=== PATIENT | male | born 1950 | race Caucasian/White ===

== ENCOUNTER 2018-06-24 13:21 | Observation (INO) | payer OTHER, MEDICARE ==
[2018-06-24] MEDS ORDERED: FAMOTIDINE 20 MG/50 ML IVPB 20 MG/50 ML MG IVPB ONE ×2 (13:58→15:06)
[2018-06-24] MEDS ORDERED: SODIUM CHLORIDE 0.9% 1000 ML INFUS.BAG IV ONE (13:58)
--- NOTE | 2018-06-24 14:19 | PDOC ---
History of Present Illness - General Chief Complaint: Syncope/Near Syncope Stated Complaint: SEND BY PCP Time Seen by Provider: 06/24/18 13:46 History Source: Patient Exam Limitations: No Limitations - History of Present Illness Initial Comments: 06/24/18 14:14 The patient is a 67M with a PMH of HIV (no viral load detected), HTN, HLD who presents to the ER with complaints of syncope. The patient states that he had eaten "something weird" yesterday, and developed profuse watery diarrhea, nausea , and vomiting. He then states that he felt the urge to vomit, and walked over to the sink then felt a "acosta of blood" towards his head. He then states that he woke up on the floor with L posterior rib pain and pain on the top of his head. He had vomit all over him. He went to sleep and saw his PCP this morning, who sent him here. He denies any CP, SOB, numbness, tingling, weakness, lightheadedness, palpitation before, during, or after this event. Past History - Past Medical History Allergies/Adverse Reactions: Allergies Allergy/AdvReac Type Severity Reaction Status Date / Time Penicillins Allergy Verified 06/24/18 13:32 Home Medications: Ambulatory Orders Abacavir/Dolutegravir/Lamivudi [Triumeq Tablet] 1 each PO DAILY 06/24/18 Fenofibric Acid [Trilipix -] 45 mg PO DAILY 06/24/18 Finasteride [Proscar] 5 mg PO DAILY 06/24/18 Lisinopril [Zestril] 10 mg PO DAILY 06/24/18 Tamsulosin HCl [Flomax] 0.4 mg PO DAILY 06/24/18 Venlafaxine HCl ER [Effexor Xr -] 37.5 mg PO DAILY 06/24/18 COPD: No Disorders: Yes (enlarged prostate) HTN: Yes Psychiatric Problems: Yes - Suicide/Smoking/Psychosocial Hx Smoking History: Never smoked Review of Systems - Review of Systems Able to Perform ROS?: Yes Comments:: 06/24/18 14:18 GENERAL/CONSTITUTIONAL: No fever or chills. No weakness. HEAD, EYES, EARS, NOSE AND THROAT: No change in vision. No ear pain or discharge. No sore throat. CARDIOVASCULAR: No chest pain, palpitations, or lightheadedness. RESPIRATORY: No cough, wheezing, shortness of breath, or hemoptysis. GASTROINTESTINAL: Positive for resolved nausea and vomiting, continued but resolving diarrhea. No abdominal pain. GENITOURINARY: No dysuria, frequency, hematuria, or change in urination. MUSCULOSKELETAL: No joint or muscle swelling or pain. No neck or back pain. SKIN: No rash or lesions. NEUROLOGIC: + for syncope. No headache, numbness, tingling, focal weakness, or change in strength/sensation. Is the patient limited Macedonian proficient: No *Physical Exam - Vital Signs Last Vital Signs Temp Pulse Resp BP Pulse Ox 98.5 F 112 H 18 140/84 96 06/24/18 13:39 06/24/18 13:39 06/24/18 13:39 06/24/18 13:39 06/24/18 13:39 - Physical Exam Comments: 06/24/18 14:18 GENERAL: Well developed, well nourished. Awake and alert. No acute distress. HEENT: 1cm hematoma on the superior scalp with abrasion. Hearing grossly normal. Moist mucous membranes. PERRLA, EOMI. No conjunctival pallor. Sclera are non-icteric. Oropharynx is clear. NECK: Supple. Full ROM. No JVD. CARDIOVASCULAR: Regular rate and rhythm. No murmurs, rubs, or gallops. PULMONARY: No evidence of respiratory distress. Lungs clear to auscultation bilaterally. No wheezing, rales or rhonchi. ABDOMINAL: Soft. Non-tender. Non-distended. No rebound or guarding. GENITOURINARY: No CVA tenderness bilaterally. MUSCULOSKELETAL: 6cm abrasion with TTP over posterior inferior L ribs. Normal range of motion at all joints. EXTREMITIES: No cyanosis. No clubbing. No edema. No calf tenderness or swelling. SKIN: Warm and dry. Normal capillary refill. No rashes. No jaundice. NEUROLOGICAL: Alert, awake, appropriate. Cranial nerves 2-12 grossly intact. Normal speech. Gait is normal without ataxia. PSYCHIATRIC: Cooperative. Good eye contact. Appropriate mood and affect. Moderate Sedation - Procedure Monitoring Vital Signs: Procedure Monitoring Vital Signs Temperature 98.5 F 06/24/18 13:39 Pulse Rate 112 H 06/24/18 13:39 Respiratory Rate 18 06/24/18 13:39 Blood Pressure 140/84 02/28/19 13:39 O2 Sat by Pulse Oximetry (%) 96 06/24/18 13:39 Heart Score/ECG Review #1 ECG reviewed & interpreted by me at: 14:19 General ECG Interpretation: Sinus Rhythm, Normal Rate, Normal Intervals, No acute ischemic changes Compared to previous ECG there are: No significant change 06/24/18 14:19 Sinus tach vent rate 110 TX 162 QRS 92 QTc 455 No STD or ERMELINDA No signs of acute ischemia ED Treatment Course - LABORATORY CBC & Chemistry Diagram: 06/24/18 15:00 06/24/18 15:00 - RADIOLOGY Radiology Studies Ordered: Category Date Time Status HEAD CT WITHOUT CONTRAST [CT] Stat CT Scan 06/24/18 13:59 Ordered CHEST PA & LAT [RAD] Stat Radiology 06/24/18 13:58 Ordered RIBS-LEFT SIDE [RAD] Stat Radiology 06/24/18 13:58 Ordered Medical Decision Making - Medical Decision Making 06/24/18 14:19 The patient is a 67M with a PMH of HIV, HTN, HLD who presents to the ER after having a syncopal episode. The patient denies any concerning symptoms during his syncopal episode. Will replete volume and image the patient's ribs and head. Pending labs and imaging. Pt noted to be ambulating without issues and is well appearing otherwise. 06/24/18 16:56 CBC, CMP WNL. CTH negative. Will admit for syncope. 06/24/18 17:[address] Leonardo for admission. *DC/Admit/Observation/Transfer Diagnosis at time of Disposition: Syncope Qualifiers: Syncope type: unspecified Qualified Code(s): R55 - Syncope and collapse - Discharge Dispostion Condition at time of disposition: Guarded Decision to Admit order: Yes - Referrals Referrals: Severo Elias [Primary Care Provider] - - Patient Instructions - Post Discharge Activity
[2018-06-24 15:14] LABS: BASO % 0.4 % (0-2.0); EOS % 1.2 % (0-4.5); HEMATOCRIT 50.1 % (35.4-49); HEMOGLOBIN 17.3 GM/dL (11.7-16.9); LYMPH % 13.2 % (8-40); MCH 30.7 pg (25.7-33.7); MCHC 34.5 g/dl (32.0-35.9); MEAN PLT VOLUME 8.3 fl (7.5-11.1); MONO % 7.7 % (3.8-10.2); NEUT % 77.5 % (42.8-82.8); PLATELET COUNT 165 K/MM3 (134-434); RBC 5.62 M/mm3 (4.00-5.60); RDW 15.3 % (11.9-15.9); WHITE BLOOD COUNT 8.4 K/mm3 (4.0-10.0)
[2018-06-24 15:21] LABS: INR 1.06 (0.83-1.09); PROTHROMBIN TIME (PATIENT) 12.5 SEC (9.7-13.0)
[2018-06-24 15:54] LABS: BLOOD UREA NITROGEN 29 mg/dL (7-18); GLUCOSE,RANDOM 109 mg/dL (74-106)
[2018-06-24 15:55] LABS: ALBUMIN 4.2 g/dl (3.4-5.0); ALK PHOS 48 U/L (45-117); ANION GAP 8 MMOL/L (8-16); BILIRUBIN,TOTAL 1.9 mg/dL (0.2-1); CALCIUM 9.4 mg/dL (8.5-10.1); CHLORIDE 106 mmol/L (98-107); CO2 24 mmol/L (21-32); CREATININE 1.3 mg/dL (0.55-1.3); MAGNESIUM 1.8 mg/dL (1.8-2.4); POTASSIUM 4.7 mmol/L (3.5-5.1); SGOT/AST 59 U/L (15-37); SGPT/ALT 53 U/L (13-61); SODIUM 137 mmol/L (136-145); TOT PROT 9.3 g/dl (6.4-8.2)
--- NOTE | 2018-06-24 16:51 | EKG ---
Test Reason : Blood Pressure : / mmHG Vent. Rate : 108 BPM Atrial Rate : 108 BPM P-R Int : 162 ms QRS Dur : 092 ms QT Int : 340 ms P-R-T Axes : 021 020 037 degrees QTc Int : 455 ms SINUS TACHYCARDIA OTHERWISE NORMAL ECG WHEN COMPARED WITH ECG OF 09-DEC-2001 12:18, QT HAS LENGTHENED Confirmed by NEWTON WRIGHT MD ([id number]) on 06/24/2018 4:51:24 PM Referred By: Confirmed By:NEWTON WRIGHT MD
--- NOTE | 2018-06-24 17:27 | PDOC ---
Attending Attestation - Resident Resident Name: BrandonadrianoSherwin - ED Attending Attestation I have performed the following: I have examined & evaluated the patient, The case was reviewed & discussed with the resident, I agree w/resident's findings & plan - [facility] HPI: 06/24/18 17:25 HPI 67 Y M, PMH of HIV, HTN, HLD, and enlarged prostate, presenting to the ED s/p syncopal episode for 2 days. Patient reports diarrhea, nausea and vomiting secondary to eating something unusual yesterday. When trying to vomit, he notes passing out, LOC, and woke up on the floor with superior head and L posterior rib pain following the episode. Patient saw his PCP this morning, who advised him to come to the ED. Denies fever, chills, chest pain, SOB, palpitation, dizziness, paresthesia, weakness, lightheadedness, abdominal pain, bladder problems, leg swelling, No sick contacts or travel. No new changes in medications. Allergies: Penicillins Past Medical History: HIV, HTN, HLD, and enlarged prostate Social history: Lives with family. No smoking. No alcohol. No illicit drugs. Surgical history: None reported PMD: Dr. Severo Elias - Physicial Exam PE: 06/24/18 17:26 agree with resident PE - NAD, well appearing. hematoma on the superior scalp with abrasion. left scapular abrasion. left lateral chest wall tenderness, small abrasion, no crepitus. lungs clear, abdomen soft NTND. RRR. no edema. ADAMS x4 06/24/18 18:53 06/24/18 18:55 06/24/18 18:56 - Medical Decision Making 06/24/18 17:26 See HPI for details Vital signs reviewed, wnl. Prior notes reviewed, including admissions, discharges and consultations. laboratory results and imaging reviewed, basic labs and lytes wnl, CXR_no acute pathology Cardiac panel_neg trop EKG sinus tachycardia at 108 bpm, no interval abnormalities, narrow QRS, ST and T wave segments and morphology normal. Nonspecific T wave abnormalities CT head neg for bleed/injury. microvascular changes noted. CXR clear, no rib fx or ptx ED course: no acute events. -admit for syncope workup, tele monitor. 06/24/18 18:53 02/28/19 18:55 Heart Score/ECG Review #1 ECG reviewed & interpreted by me at: 13:40 General ECG Interpretation: Sinus Rhythm 06/24/18 17:27 EKG sinus tachycardia at 108 bpm, no interval abnormalities, narrow QRS, ST and T wave segments and morphology normal. Nonspecific T wave abnormalities
--- NOTE | 2018-06-24 17:29 | HP ---
CHIEF COMPLAINT: PCP:Guillermo HISTORY OF PRESENT ILLNESS: 67yo M with PMH HIV on HARRT, HTN, BPH, and dyslipidemia presented to the ER after syncopal episode. States he was in normal state of health. He prepared himself from frozen packages of fried shrimp and pigs in a blanket around 10pm. Started feeling queezy around midnight and had urge to vomit. was walking to the kitchen sink to vomit where he passed out. states he is unsure how long he lost consciousness from but woke up covered in vomit and struck his head on the kitchen floor. states he had approximately 10 episodes of loose BM since then. has since improved since arrival. had no previous episodes in the past. did not take his medications today. no recent changes to medication. no recent abx use. denies CP, SOB, fever, chills. had echo and NMST in 2016 which he reports as normal (states its performed part of routine screening) ER course was notable for: (1) (2) (3) Recent Travel:unknown PAST MEDICAL HISTORY:HIV, HTN, BPH, dyslipidemia, Spontaneous PTX s/p VATS x2 PAST SURGICAL HISTORY:VATS x2 1970, L shoulder repair 2016 Social History: Smoking:quit 2011 Alcohol:1 glass of wine/week Drugs: denies Family History:mother lung ca, maternal aunt NHL, father cardiac disease in 60's Allergies Penicillins Allergy (Verified 06/24/18 13:32) HOME MEDICATIONS: Home Medications Medication Instructions Recorded Abacavir/Dolutegravir/Lamivudi 1 each PO DAILY 06/24/18 [Triumeq Tablet] Fenofibric Acid [Trilipix -] 45 mg PO DAILY 06/24/18 Finasteride [Proscar] 5 mg PO DAILY 06/24/18 Lisinopril [Zestril] 10 mg PO DAILY 06/24/18 Tamsulosin HCl [Flomax] 0.4 mg PO DAILY 06/24/18 Venlafaxine HCl ER [Effexor Xr -] 37.5 mg PO DAILY 06/24/18 REVIEW OF SYSTEMS CONSTITUTIONAL: Absent: fever, chills, diaphoresis, generalized weakness, malaise, loss of appetite, weight change HEENT: Absent: rhinorrhea, nasal congestion, throat pain, throat swelling, difficulty swallowing, mouth swelling, ear pain, eye pain, visual changes CARDIOVASCULAR: Absent: chest pain, syncope, palpitations, irregular heart rate, lightheadedness , peripheral edema RESPIRATORY: Absent: cough, shortness of breath, dyspnea with exertion, orthopnea, wheezing, stridor, hemoptysis GASTROINTESTINAL:abdominal distension, nausea, vomiting, diarrhea Absent: abdominal pain, , constipation, melena, hematochezia GENITOURINARY: Absent: dysuria, frequency, urgency, hesitancy, hematuria, flank pain, genital pain MUSCULOSKELETAL: Absent: myalgia, arthralgia, joint swelling, back pain, neck pain SKIN: Absent: rash, itching, pallor HEMATOLOGIC/IMMUNOLOGIC: Absent: easy bleeding, easy bruising, lymphadenopathy, frequent infections ENDOCRINE: Absent: unexplained weight gain, unexplained weight loss, heat intolerance, cold intolerance NEUROLOGIC: Absent: headache, focal weakness or paresthesias, dizziness, unsteady gait, seizure, mental status changes, bladder or bowel incontinence PSYCHIATRIC: Absent: anxiety, depression, suicidal or homicidal ideation, hallucinations. PHYSICAL EXAMINATION Vital Signs - 24 hr 06/24/18 13:39 Temperature 98.5 F Pulse Rate 112 H Respiratory 18 Rate Blood Pressure 140/84 O2 Sat by Pulse 96 Oximetry (%) GENERAL: Awake, alert, and fully oriented, in no acute distress. skin is flushed HEAD: abrasion to top of head with surrounding swelling, +tender. EYES: Pupils equal, round and reactive to light, extraocular movements intact, sclera anicteric, conjunctiva clear. No lid lag. EARS, NOSE, THROAT: Ears normal, nares patent, oropharynx clear without exudates. Dry mucous membranes. NECK: Normal range of motion, supple without lymphadenopathy, JVD, or masses. LUNGS: Breath sounds equal, clear to auscultation bilaterally. No wheezes, and no crackles. No accessory muscle use. HEART: Regular rate and rhythm, normal S1 and S2 without murmur, rub or gallop. ABDOMEN: Soft, nontender, + distended, normoactive bowel sounds, no guarding, no rebound, no masses. No hepatomegaly or splenomegaly. MUSCULOSKELETAL: Normal range of motion at all joints. No bony deformities or tenderness. No CVA tenderness. UPPER EXTREMITIES: 2+ pulses, warm, well-perfused. No cyanosis. No clubbing. No peripheral edema. LOWER EXTREMITIES: 2+ pulses, warm, well-perfused. No calf tenderness. No peripheral edema. NEUROLOGICAL: Cranial nerves II-XII intact. Normal speech. Normal gait. PSYCHIATRIC: Cooperative. Good eye contact. Appropriate mood and affect. SKIN: Warm, dry, normal turgor, abrasion inferior to L scapula no active bleeding. normal capillary refill. Laboratory Results - last 24 hr 06/24/18 06/24/18 06/24/18 15:00 15:00 15:00 WBC 8.4 RBC 5.62 H Hgb 17.3 H Hct 50.1 H MCV 89.0 MCH 30.7 MCHC 34.5 RDW 15.3 Plt Count 165 MPV 8.3 D Absolute Neuts (auto) 6.5 Neutrophils % 77.5 Lymphocytes % 13.2 Monocytes % 7.7 Eosinophils % 1.2 Basophils % 0.4 Nucleated RBC % 0 PT with INR 12.50 INR 1.06 Sodium 137 Potassium 4.7 Chloride 106 Carbon Dioxide 24 Anion Gap 8 BUN 29 H Creatinine 1.3 Creat Clearance w eGFR 54.90 Random Glucose 109 H Calcium 9.4 Magnesium 1.8 Total Bilirubin 1.9 H AST 59 H ALT 53 Alkaline Phosphatase 48 Creatine Kinase 453 H Creatine Kinase Index 1.5 CK-MB (CK-2) 7.2 H Troponin I < 0.02 Total Protein 9.3 H Albumin 4.2 ASSESSMENT/PLAN: 67yo M with PMH HIV on HARRT, HTN and dyslipidemia presented to the ER after syncopal episode after having significant diarrhea the day prior 1. Syncope- tele observation. continuous cardiac monitoring. likely due to dehydration and vasovagal. will aggressively hydrate. check carotid doppler and echo. Head CT, CXR and Rib XR reviewed 2. Skin abrasion- from mechanical fall. local wound care. ice pack. tylenol/ motrin prn 3. Diarrhea- likely food borne as started suddenly after eating and already has improved. low suspicion for CMV given self-reported good CD4 counts. will check O&P and cdiff although low suspicion 4. Hyperbilirubinemia- check direct. get RUQ u/s. 5. ARTUR- due to dehydration. making urine. cont IVF. avoid nephrotoxic agents. if conitnues to rise consider renal u/s. 6. Polycythemia-suspected to be hemoconcentrated due to dehydration. IVF and repeat 7. HTN- restart home medications 8. HIV- states VL is undetectable. cont HARRT therapy 9. DVT ppx- EAM Visit type - Emergency Visit Emergency Visit: Yes ED Registration Date: 06/24/18 Care time: The patient presented to the Emergency Department on the above date and was hospitalized for further evaluation of their emergent condition. - New Patient This patient is new to me today: Yes Date on this admission: 06/24/18 - Critical Care Critical Care patient: No
[2018-06-24] MEDS ORDERED: ONDANSETRON 4 MG/2 ML VIAL IVPUSH PRN (17:52)
[2018-06-24] MEDS ORDERED: SODIUM CHLORIDE 1,000 ML IV STA (17:52)
[2018-06-24] MEDS ORDERED: IBUPROFEN 400 MG TABLET (FP) PO PRN (17:52)
[2018-06-24] MEDS ORDERED: ACETAMINOPHEN 325 MG TABLET (FP) PO PRN (17:52)
[2018-06-24] MEDS ORDERED: SODIUM CHLORIDE 1,000 ML IV SCH (18:00)
[2018-06-24] MEDS: BACITRACIN/POLYMYXIN B SULFATE 15 GM TUBE TP SCH (18:17)
[2018-06-24] MEDS ORDERED: BACITRACIN 0.9 GM PACKET ONE (18:17)
[2018-06-24 22:49] VITALS: BMI 26.4
[2018-06-25 06:05] VITALS: TEMP 98
[2018-06-25 07:00] LABS: HEMATOCRIT 44.4 % (35.4-49); HEMOGLOBIN 15.2 GM/dL (11.7-16.9); MCH 30.8 pg (25.7-33.7); MCHC 34.2 g/dl (32.0-35.9); MEAN PLT VOLUME 8.2 fl (7.5-11.1); PLATELET COUNT 117 K/MM3 (134-434); RBC 4.94 M/mm3 (4.00-5.60); RDW 15.2 % (11.9-15.9); WHITE BLOOD COUNT 4.1 K/mm3 (4.0-10.0)
[2018-06-25 07:03] LABS: ALBUMIN 3.6 g/dl (3.4-5.0); ALK PHOS 40 U/L (45-117); ANION GAP 3 MMOL/L (8-16); BILIRUBIN,TOTAL 1.4 mg/dL (0.2-1); BLOOD UREA NITROGEN 24 mg/dL (7-18); CALCIUM 8.1 mg/dL (8.5-10.1); CHLORIDE 110 mmol/L (98-107); CO2 28 mmol/L (21-32); GLUCOSE,RANDOM 94 mg/dL (74-106); POTASSIUM 4.2 mmol/L (3.5-5.1); SGOT/AST 49 U/L (15-37); SGPT/ALT 44 U/L (13-61); SODIUM 142 mmol/L (136-145); TOT PROT 7.9 g/dl (6.4-8.2)
[2018-06-25] MEDS ORDERED: VENLAFAXINE HCL 37.5 MG E.R. CAPSULE (FP) PO SCH (08:00)
[2018-06-25] MEDS ORDERED: PT OWN MED DRAWER 7, Y5N ONE ×3 (09:25→10:41)
[2018-06-25] MEDS: BACITRACIN/POLYMYXIN B SULFATE 15 GM TUBE TP SCH (09:32)
[2018-06-25] MEDS ORDERED: ABACAVIR/DOLUTEGRAVIR/LAMIVUDI (TRIUMEQ) TABLET -NF PO SCH (10:00)
[2018-06-25] MEDS ORDERED: FENOFIBRIC ACID 45 MG CAP PO SCH (10:00)
[2018-06-25] MEDS ORDERED: TAMSULOSIN HCL 0.4 MG CAP PO SCH (10:00)
[2018-06-25] MEDS ORDERED: FINASTERIDE 5 MG TABLET (FP) PO SCH (10:00)
[2018-06-25] MEDS ORDERED: LISINOPRIL 10 MG TABLET (FP) PO SCH (10:00)
[2018-06-25 11:53] VITALS: BP 135/84; PULSE 84
--- NOTE | 2018-06-25 13:53 | ECHO ---
Name: TAM VERGARA Exam:Adult Echocardiogram Study Date: 06/25/2018 11:03 AM Age: 67 yrs Reason For Study: SYNCOPE Height: 72 in Weight: 196 lb BSA: 2.1 m2 MMode/2D Measurements & Calculations IVSd: 1.3 cm Ao root diam: 3.6 cm LVIDd: 4.9 cm LA dimension: 2.9 cm LVIDs: 2.8 cm LVPWd: 1.4 cm LVPWs: 1.5 cm EDV(Teich): 114.5 ml ESV(Teich): 30.3 ml LVOT diam: 2.1 cm RV S Gonzalo: 17.0 cm/sec Doppler Measurements & Calculations MV E max gonzalo: 70.1 cm/sec Ao V2 max: 125.5 cm/sec MV A max gonzalo: 96.7 cm/sec Ao max P.3 mmHg MV E/A: 0.72 Ao V2 mean: 85.7 cm/sec MV dec time: 0.13 sec Ao mean P.5 mmHg Ao V2 VTI: 22.0 cm ALLYSON(I,D): 1.8 cm2 ALLYSON(V,D): 1.9 cm2 LV V1 max P.9 mmHg SV(LVOT): 39.0 ml LV V1 mean P.72 mmHg LV V1 max: 68.6 cm/sec LV V1 mean: 37.7 cm/sec LV V1 VTI: 11.3 cm PA V2 max: 120.1 cm/sec Med Peak E' Gonzalo: 7.1 cm/sec PA max P.8 mmHg Med E/e': 9.9 Lat Peak E' Gonzalo: 11.4 cm/sec Lat E/e': 6.1 Left Ventricle Left ventricular systolic function is normal. Ejection Fraction = 55-60%. The transmitral spectral Do ppler flow pattern is suggestive of impaired LV relaxation. Right Ventricle The right ventricle is normal in size and function. Atria Normal left and right atrial size and function. Mitral Valve There is mild to moderate mitral valve thickening. There is no mitral valve stenosis. There is mild m itral regurgitation. Tricuspid Valve The tricuspid valve is normal in structure and function. Aortic Valve There is moderate aortic sclerosis.;. No hemodynamically significant valvular aortic stenosis. No aor tic regurgitation is present. Pulmonic Valve The pulmonic valve is not well seen, but is grossly normal. There is no pulmonic valvular stenosis. Great Vessels The aortic root is normal size. Pericardium/Pleura There is no pericardial effusion. Interpretation Summary Left ventricular systolic function is normal. Ejection Fraction = 55-60%. The transmitral spectral Doppler flow pattern is suggestive of impaired LV relaxation. The right ventricle is normal in size and function. There is mild to moderate mitral valve thickening. There is mild mitral regurgitation. There is moderate aortic sclerosis.; There is no pericardial effusion. MD Harris *Ney 06/25/2018 01:52 PM
--- NOTE | 2018-06-25 14:18 | DS ---
Physical Exam: SUBJECTIVE: Patient seen and examined 7yo M with PMH HIV on HARRT, HTN, BPH, and dyslipidemia presented to the ER after syncopal episode. In hospital he was hydrated and he is improved he has no dizziness and he is eating well He had echo done in hospital and no wall motion abnormalities he is stable OBJECTIVE: Vital Signs Period Temp Pulse Resp BP Sys/García Pulse Ox Last 24 Hr 97 F-98.7 F 78-99 16-20 126-148/68-89 95-96 PHYSICAL EXAM GENERAL: The patient is awake, alert, and fully oriented, in no acute distress. HEAD: Normal with no signs of trauma. EYES: PERRL, extraocular movements intact, sclera anicteric, conjunctiva clear. ENT: Ears normal, nares patent, oropharynx clear without exudates, moist mucous membranes. NECK: Trachea midline, full range of motion, supple. LUNGS: Breath sounds equal, clear to auscultation bilaterally, no wheezes, no crackles, no accessory muscle use. HEART: Regular rate and rhythm, S1, S2 without murmur, rub or gallop. ABDOMEN: Soft, nontender, nondistended, normoactive bowel sounds, no guarding, no rebound, no hepatosplenomegaly, no masses. EXTREMITIES: 2+ pulses, warm, well-perfused, no edema. NEUROLOGICAL: Cranial nerves II through XII grossly intact. Normal speech, gait not observed. PSYCH: Normal mood, normal affect. SKIN: Warm, dry, normal turgor, no rashes or lesions noted. LABS Laboratory Results - last 24 hr 06/24/18 06/24/18 06/24/18 15:00 15:00 15:00 WBC 8.4 RBC 5.62 H Hgb 17.3 H Hct 50.1 H MCV 89.0 MCH 30.7 MCHC 34.5 RDW 15.3 Plt Count 165 MPV 8.3 D Absolute Neuts (auto) 6.5 Neutrophils % 77.5 Lymphocytes % 13.2 Monocytes % 7.7 Eosinophils % 1.2 Basophils % 0.4 Nucleated RBC % 0 PT with INR 12.50 INR 1.06 Sodium 137 Potassium 4.7 Chloride 106 Carbon Dioxide 24 Anion Gap 8 BUN 29 H Creatinine 1.3 Creat Clearance w eGFR 54.90 Random Glucose 109 H Calcium 9.4 Magnesium 1.8 Total Bilirubin 1.9 H AST 59 H ALT 53 Alkaline Phosphatase 48 Creatine Kinase 453 H Creatine Kinase Index 1.5 CK-MB (CK-2) 7.2 H Troponin I < 0.02 Total Protein 9.3 H Albumin 4.2 06/25/18 06/25/18 06:00 06:00 WBC 4.1 RBC 4.94 Hgb 15.2 Hct 44.4 MCV 90.0 MCH 30.8 MCHC 34.2 RDW 15.2 Plt Count 117 L D MPV 8.2 Absolute Neuts (auto) Neutrophils % Lymphocytes % Monocytes % Eosinophils % Basophils % Nucleated RBC % PT with INR INR Sodium 142 Potassium 4.2 Chloride 110 H Carbon Dioxide 28 Anion Gap 3 L BUN 24 H Creatinine 1.0 Creat Clearance w eGFR > 60 Random Glucose 94 Calcium 8.1 L Magnesium Total Bilirubin 1.4 H AST 49 H ALT 44 Alkaline Phosphatase 40 L Creatine Kinase Creatine Kinase Index CK-MB (CK-2) Troponin I Total Protein 7.9 Albumin 3.6 HOSPITAL COURSE: he has high wbc count and slightly elevated lfts and are coming down he is going to f/u at his pmds office Date of Admission:06/24/18 Date of Discharge: 06/25/18 He is going to f/u with his pmd and no new meds are ordered He is going to see him next week Minutes to complete discharge: 30 Discharge Summary Reason For Visit: SYNCOPE AND COLLAPES Condition: Good - Instructions Diet, Activity, Other Instructions: normal activities Referrals: Severo Elias [Primary Care Provider] - Disposition: HOME - Home Medications Comprehensive Discharge Medication List: Ambulatory Orders Tamsulosin HCl [Flomax -] 0.4 mg PO DAILY 06/24/18 Venlafaxine HCl ER [Effexor Xr -] 37.5 mg PO DAILY 06/24/18 Abacavir/Dolutegravir/Lamivudi [Triumeq (Non-Formulary)] 1 each PO DAILY tablet 06/25/18 Bacitracin/Polymyxin Ointment [Polysporin Ointment -] 1 applic TP DAILY tube Fenofibric Acid [Trilipix -] 45 mg PO DAILY cap 06/25/18 Finasteride [Proscar -] 5 mg PO DAILY tablet 06/25/18 Ibuprofen [Motrin -] 400 mg PO Q6H PRN tablet 06/25/18 Lisinopril [Prinivil] 10 mg PO DAILY tablet 06/25/18 Tamsulosin HCl [Flomax -] 0.4 mg PO DAILY cap.er.24h 06/25/18 Venlafaxine HCl ER [Effexor Xr -] 37.5 mg PO DAILY@0800 cap.er.24h 06/25/18 This patient is new to me today: Yes Date on this admission: 06/25/18 Emergency Visit: Yes ED Registration Date: 06/24/18 Care time: The patient presented to the Emergency Department on the above date and was hospitalized for further evaluation of their emergent condition. Critical Care patient: No - Discharge Referral Referred to [facility] Med P.[facility] No
[2018-06-26 16:17] LABS: BILIRUBIN,DIRECT 0.3 mg/dL (0.0-0.2)
== END 2018-06-25 16:09 | disposition home or self-care (01) ==
LOC: JER 13:21 → JERBED 17:27 → J4S 21:54
PROVIDERS: ADMIT Internal Medicine; ATTEND Internal Medicine
PROC: 3E033GC Introduction of Other Therapeutic Substance into Peripheral Vein, Percutaneous Approach (ICD-10-PCS; principal; 2018-06-24)
PROC: 3E0337Z Introduction of Electrolytic and Water Balance Substance into Peripheral Vein, Percutaneous Approach (ICD-10-PCS; 2018-06-24)
DX: R55 Syncope and collapse (principal); I10 Essential (primary) hypertension; E78.5 Hyperlipidemia, unspecified; Z21 Asymptomatic human immunodeficiency virus [HIV] infection status; N40.0 Benign prostatic hyperplasia without lower urinary tract symptoms; R19.7 Diarrhea, unspecified; N17.9 Acute kidney failure, unspecified; E86.0 Dehydration; Z88.0 Allergy status to penicillin
CPT/HCPCS: 36415; 70450-TC; 71046-TC-FY; 71101-TC-LT-FY; 80053; 82248; 82550; 82553; 83735; 84484; 85025; 85027; 85610; 93005; 93010; 93306-TC; 96374; 99285-25; G0378; J7030